=== PATIENT | male | born 1975 | race Two or more races ===

== ENCOUNTER 2024-11-29 07:34 | Outpatient (CLI) | payer OTHER ==
[~2024-11-29 07:34] MED LIST: DOLOGESIC CAPLE1 TAB PO; TYLENOL32 MG/ML PO
== END 2024-11-29 07:44 | disposition home or self-care (01) ==
LOC: RAD 07:34
PROVIDERS: ATTEND Emergency Medicine Hospice and Palliative Medicine
DX: M79.7 Fibromyalgia (principal)

== ENCOUNTER 2025-01-05 13:17 | Outpatient (CLI) | payer OTHER | END 2025-01-05 13:20 | disposition home or self-care (01) | LOC: RAD 13:17 | DX: M99.03 Segmental and somatic dysfunction of lumbar region (principal); M99.04 Segmental and somatic dysfunction of sacral region; M54.51 Vertebrogenic low back pain ==

== ENCOUNTER 2025-01-08 10:22 | Outpatient (CLI) | payer OTHER | END 2025-01-08 10:23 | disposition home or self-care (01) | LOC: MRI 10:22 | DX: M99.03 Segmental and somatic dysfunction of lumbar region (principal); M99.04 Segmental and somatic dysfunction of sacral region; M99.05 Segmental and somatic dysfunction of pelvic region | CPT/HCPCS: 72148 ==